=== PATIENT | female | born 1975 | race Caucasian/White ===

== ENCOUNTER 2022-01-16 05:08 | Day surgery (SDC) | payer SELFPAY ==
[2022-01-10 17:23] LABS: Hematocrit 44.8 % (37-47); Hemoglobin 14.5 g/dL (12.0-15.0); Mean Corp Hgb Conc 32.4 g/dL (32-36); Mean Corpuscular Volume 89.6 fL (81-99); Mean Platelet Vol. 10.7 fl (6.2-12.0); Platelet Count 301 K/mm3 (150-450); RBC Distribution Width CV 13.7 % (11.6-14.6); RBC Distribution Width SD 44.8 fl (35.1-43.9); White Blood Count 8.5 K/mm3 (4.4-11.0)
[2022-01-10 17:46] LABS: Magnesium 2.6 mg/dL (1.6-2.6)
[2022-01-16] VITALS (12 sets, daily range): BP systolic 116–143; BP diastolic 53–78; PULSE 72–92; RESP 11–18; TEMP 36.1–36.9; O2SAT 92–100; BMI 34.7
[2022-01-16] MEDS: Acetaminophen 500 MG Tablet 1000 MG PO ×2 (06:11→12:04)
[2022-01-16] MEDS: Gabapentin 600 MG Tablet PO (06:11)
[2022-01-16] MEDS: Lactated Ringers 1,000 ML 40 ML IV (06:12)
[2022-01-16 06:23] LABS: Internal QC Validated? YES +Cl - CLEAR BKGD; Pregnancy, Urine Negative Negative
[2022-01-16 06:40] LABS: Bedside Glucose 71 mg/dL (74-106)
--- NOTE | 2022-01-16 06:57 | PCM.HP.BLA ---
History and Physical Date of Admission: 01/16/22 Chief complaint: Abnormal uterine bleeding History present illness: 46-year-old for robotic assisted total laparoscopic hysterectomy bilateral salpingectomy and cystoscopy for abnormal uterine bleeding. No changes medically since last seen. All questions answered and consent signed. Obstetric history: History of 1 Past medical history: None Medications: Sprintec Past surgical history: Ablation Allergies: No known drug allergies Social history: Denies smoking, alcohol use, drug use Family history: Denies history DVT or PE Review of systems: Besides above pertinent positives a full review of systems was performed and found to be negative Physical exam: Vitals: Blood pressure 123/60 pulse 86 respiratory rate 18 temp 97.0 Fahrenheit SPO2 96% on room air General: Normal-appearing no acute distress HEENT: Normocephalic/atraumatic no cervical lymphadenopathy Cardiac/respiratory: No use accessory muscles, nonlabored breathing Abdomen: Soft, nontender, nondistended Extremities: No peripheral edema normal peripheral pulses Psych: Normal affect normal demeanor nonpressured speech Labs: Urine test negative Assessment plan: 46-year-old for robotic assisted total laparoscopic hysterectomy and bilateral salpingectomy and cystoscopy for abnormal uterine bleeding. Educated patient on the risk benefits alternatives of the procedure. Patient states understanding and wishes to proceed. All questions were answered and consent was signed.
--- NOTE | 2022-01-16 07:30 | HYST_PTH ---
PATIENT: ROSE ZUÑIGA LOC: [facility] [place] U#:[id number] AGE/SX: 46/F ROOM: RE01/16/[address]: Dr. Franck Nails MD : [id number] BED: DIS: 01/16/2022 SPEC #: [id number] RECD: 01/16/22 10:57 STATUS: ARCHIE MANConsuelo #: [id number] ESTRELLA: 01/16/22 07:[address]: Franck Nails DEPT: SURGICAL PATHOLOGY RECD BY: Rose Louise ENTERED: 01/16/22 11:48 SP TYPE: HYSTERECT OTHR DR: Amanda Vanegas, SANDBLASTER STONE-C Tissues: Uterus, NOS Procedures: Surgery Specimen Level V HEADER OPERATION: ERAS, robotic assisted total laparoscopic hysterectomy, bilateral salpingectomy PRE-OP DIAGNOSIS: Abnormal uterine bleeding TISSUE SUBMITTED: Uterus, cervix, bilateral fallopian tubes MICROSCOPIC DIAGNOSIS Uterus, hysterectomy: Cervix ? nabothian cysts and chronic inflammation. Endometrium ? inactive endometrium. Myometrium ? leiomyomas and adenomyosis. Right and left fallopian tubes - No pathologic change. AM:young 01/17/2022 MICROSCOPIC DESCRIPTION Slides are reviewed. GROSS DESCRIPTION Received in fixative is one container labeled with the patient's name and designated uterus, cervix, bilateral fallopian tubes. The specimen consists of a hysterectomy specimen consisting of uterus with cervix and detached bilateral fallopian tubes. The uterus with cervix weighs 110 gm and measures 9 x 6.5 x 4.5 cm. Multiple subserosal nodules are noted. The serosal surface is azul, glistening. The ectocervical mucosa is unremarkable. The external os is covered with hemorrhagic mucoid material and oval in contour. The endocervical canal measures 3.5 cm in length and the endocervical mucosa is azul, glistening and unremarkable. The endometrial cavity is triangular to saucer-shaped and measures 5.5 cm in length and 2.5 cm in diameter. The endometrium is azul, glistening without any mass lesion and measures 0.1 cm in thickness. Sections of the uterine wall reveal multiple submucosal, intramural and subserosal nodular masses. The largest mass is submucosal and measures 2.5 cm in diameter. The uninvolved uterine wall measures up to 1.5 cm in thickness. Sections of these masses reveal azul whorled cut surfaces without areas of hemorrhage, necrosis or cystic degeneration. The fallopian tubes are not identified as right or left and measures 4.5 cm in length and 1 cm in diameter and 5 cm in length and 0.6 cm in diameter. The fimbrial ends are identified. Sections reveal unremarkable cut surfaces. Sections of uterine wall also contain the nodular masses. Retirement Benefits Specialist sections are submitted in ten cassettes as follows: 1 - anterior cervix, 2 - posterior cervix, 3 & 4 - anterior uterine wall, 5 & 6 - posterior uterine wall, 7 - largest submucosal nodular mass, 8 - more nodular masses, submucosal, intramural and subserosal, 9 - one fallopian tube, 10 - second fallopian tube. / SJ:young 01/16/2022 TC:1 CPT: 63608
[2022-01-16] MEDS: Cefazolin 2 GM in 0.9% Normal Saline 100 ML IV (07:39)
--- NOTE | 2022-01-16 09:15 | PCM.DC ---
Discharge Instructions Diet Discharge Diet: No restrictions Activity Discharge Activity: Return to Normal Activity, May Drive, May Shower and - (No tub baths for 2-week) May resume sexual activity in: 4-6 weeks Lifting Restrictions: No lifting over 25 pounds for 2 to 3 weeks Dressing / Incision Call your doctor if your incision/area has: Continuous Slow Oozing and Foul Smelling Discharge Call your doctor if you observe: Fever of 101 or Higher, Shortness of breath and Chest pain Follow Up Care Please Follow Up With: Franck Nails MD When: 2 weeks postoperatively Test Results: Test results from this visit will be discussed in further detail at your follow-up appointment, if applicable. Discharge Plan Admission Primary Reason for Your Visit: Hysterectomy Attending Provider: Franck Nails Primary Care Provider: Amanda Vanegas NP Discharge Orders/Prescriptions Prescriptions: New oxycodone 5 mg Tablet 5 mg PO Q6H PRN PRN (Reason: Pain Score 7-10/10) 5 Days Qty: 20 0RF Discontinued norgestimate-ethinyl estradiol [Sprintec (28)] 0.25-35 mg-mcg tablet 1 tab PO DAILY Label Comments: TAKE 1 TABLET BY MOUTH ONCE DAILY Other Ambulatory Orders: ,Urine (Routine) Timeframe: [id number] Facility: [facility] - Location: Laboratory Ordered By: Dr. Steve Luu Referrals / Follow Up: Amanda Vanegas ELECTRIC MOTOR MECHANIC, ELECTRIC MOTOR MECHANIC-C [Primary Care Provider] - Disposition Disposition (needs filled in before D/C Order can be placed): Home, Self Care
--- NOTE | 2022-01-16 09:16 | OP.PCM_ITS ---
Report of Operation Date of Procedure: 01/16/22 Pre-Operative Diagnosis: Abnormal uterine bleeding Post-Operative Diagnosis: Abnormal uterine bleeding, left labial laceration Surgery/Procedure Performed:: Robotic assisted total laparoscopic hysterectomy bilateral salpingectomy, cystoscopy. Left labial laceration repair Description of Surgical Findings:: Surgeon: Franck Nails MD Anesthesia: General EBL: 50 cc Urine output: 100 cc IV fluids: 1000 cc Complications: None Specimen: Cervix, uterus, bilateral fallopian tubes Findings: Fibroid uterus otherwise normal uterus, tubes, and ovaries. Superficial left labial laceration noted at site of manipulator handle, likely secondary to friction from manipulation. Post procedure cystoscopy with bilateral ureteral jets noted and no pathology noted Consent: Patient with abnormal uterine bleeding in need of robotic assisted total laparoscopic hysterectomy bilateral salpingectomy, cystoscopy. Patient understands the risk of the procedure include but are not limited to visceral or vascular injury, prolonged hospitalization, blood loss need for transfusion, reoperation. Patient state understanding wish to proceed. All questions were answered and consent was signed. Procedure: Patient was brought back to the OR where general anesthesia was found to be adequate. 2 g of Ancef were given for infection prophylaxis. Patient was prepared and draped in a dorsolithotomy position with yellowfin stirrups. A weighted speculum is placed in the posterior aspect of vagina and cervical dilators were used to dilate the cervix. Uterine manipulator was placed. Varies needle was inserted at the umbilicus and water safety test was passed. 8 mm midline supraumbilical trocar was inserted under direct visualization. Laparoscope was inserted and above findings were noted. Bilateral lower quadrant 8 mm trochars were inserted under direct visualization. Left upper quadrant 8 mm trocar was inserted under direct visualization. Robot was docked. Bilateral ureters were identified and noted to be out of the operative field. Using a vessel sealer and monopolar scissors the left round ligament was identified cut and cauterized. Anterior portion of broad ligament was dissected and bladder flap was developed. Left fallopian tube was identified to the fimbria and the mesosalpinx was cut and cauterized, fallopian tube removed from abdominal cavity and sent to pathology. Left utero-ovarian ligament identified cut and cauterized. Posterior portion of broad ligament dissected, left uterine vessels skeletonized. Left uterine vessels cut and cauterized lateralized beyond the level colpotomy cup. Right round ligament was identified cut and cauterized. Anterior portion of broad ligament was dissected and bladder flap was fully developed beyond the level colpotomy cup. Right fallopian tube was identified out to the fimbria and the mesosalpinx was cut and cauterized. Right fallopian tube was removed from the abdominal cavity and sent to pathology. Right utero-ovarian ligament was identified cut and cauterized. Posterior portion of broad ligament was dissected and right uterine vessels were skeletonized. Right uterine vessels were cut and cauterized lateralized beyond the level colpotomy cup. Circumferential colpotomy was made. Uterus was removed from abdominal cavity. Good hemostasis was noted. Uterus was closed with 2 oh V-Loc suture in a continuous running fashion. Good hemostasis was noted. Abdominal pressure was decreased and good hemostasis was noted. Post procedure cystoscopy performed and above findings were noted. Left labial laceration noted as above superficial closed with 3-0 Vicryl interrupted sutures. Good hemostasis was noted. Intra-abdominally Rony was placed over the colpotomy incision. Good hemostasis was noted. Trochars were removed under direct visualization, abdomen was desufflated. Good hemostasis was noted. Trocar sites were closed in subcutaneous fashion. Good hemostasis was noted. All counts were correct x2. Patient tolerated procedure well and was brought to recovery in stable condition. community recreation programmer: Lavon Recinos
[2022-01-16] MEDS: Ondansetron 4 MG/2 ML Vial IV (09:44)
[2022-01-16] MEDS: Ketorolac 30 MG/ML Syringe IV (13:00)
== END 2022-01-16 15:03 | disposition home or self-care (01) ==
LOC: SDC 05:11 → AC 05:14
PROVIDERS: Anesthesiology; PCP Nurse Practitioner Family; Referring Provider Obstetrics & Gynecology; Visit Provider Obstetrics & Gynecology
PROC: 0UT90ZZ Resection of Uterus, Open Approach (ICD-10-PCS; CPT 12001; principal; 2022-01-16 07:10)
DX: N93.9 Abnormal uterine and vaginal bleeding, unspecified (principal); S31.41XA Laceration without foreign body of vagina and vulva, initial encounter; N88.8 Other specified noninflammatory disorders of cervix uteri; W26.8XXA Contact with other sharp object(s), not elsewhere classified, initial encounter; Y92.234 Operating room of hospital as the place of occurrence of the external cause; Z87.2 Personal history of diseases of the skin and subcutaneous tissue
CPT/HCPCS: 12001; 58571; S2900; 00840; 36415; 81025; 82962; 83735; 85027; 86850; 86900; 86901; 88307; J7120; J2405